=== PATIENT | female | born 1960 | race Caucasian/White ===

== ENCOUNTER 2023-12-07 01:48 | Outpatient (CLI) | payer MEDICAID, SELFPAY ==
--- NOTE | 2023-12-07 06:45 | DI.MAMMO_ITS ---
Exam(s) MAMMO SCREENING EXAM: MAMMO SCREENING CLINICAL HISTORY: screening, Z12.39 TECHNIQUE: Bilateral full field digital CC and MLO mammographic images were obtained with 3D tomosyn thesis and utilizing computer aided detection (CAD). COMPARISON: Available for comparison. FINDINGS: Masses/Architectural Distortion: None seen. Microcalcifications: No suspicious pleomorphic-type are seen. Skin Thickening/Nipple Retraction: None. IMPRESSION: 1. No significant interval change with no specific features of malignancy noted. 2. Unless there is more urgent need, screening mammography is recommended, as per [employer] guidelines. BI-RADS Category 1 - Negative Breast Density - Category B - Scattered areas of fibroglandular density Breast density category C or D implies that the patient has dense breast tissue. Dense breast tissue is very common and is not abnormal but dense breast tissue can make it harder to find cancer on a ma mmogram. Also, dense breast tissue may increase their breast cancer risk. This information about the result of the mammogram report was provided to the patient to raise their awareness. Use this report when you speak with the patient about their risks for breast cancer, which includes their family hist ory. At that time, you may recommend for more screening tests (Ultrasound or MRI) as they might be us eful based on their risk. A negative radiographic report should not delay biopsy if a dominant or clinically suspicious mass is present. Up to ten percent of cancers are not identified on mammography. A negative report may reinforce clinical impression. Adenosis and dense breasts may obscure an underlying neoplasm. False positive reports average 6 to 10%. Patient will receive a letter notifying them of these results.
== END 2023-12-07 02:08 ==
LOC: DI 01:48
PROVIDERS: PCP Family Medicine; Visit Provider Family Medicine
DX: Z12.31 Encounter for screening mammogram for malignant neoplasm of breast (principal)
CPT/HCPCS: 77063; 77067

== ENCOUNTER 2023-12-22 01:24 | Outpatient (CLI) | payer MEDICAID, SELFPAY ==
[2023-12-22 08:43] LABS: HCT 42.4 % (36.0-46.0); MCH 29.9 pg (27.0-33.0); MCV 91 fL (80-95); MPV 9.8 fL (8.0-11.0); Platelet Count 159 10^3/uL (130-400); RBC 4.68 10^6/uL (3.93-5.22); RDW 13.6 % (11.7-14.6); RDW-SD 45.5 fL; WBC 5.41 10^3/uL (4.4-10.8)
[2023-12-22 09:29] LABS: ALT 44 U/L (14-59); AST 23 U/L (15-37); Albumin 3.6 g/dL (3.4-5.0); Alkaline Phosphatase 72 U/L (46-116); Anion Gap 10.5 mmol/L (3-11); BUN 25 mg/dL (7-18); CO2 27.5 mmol/L (21.0-32.0); Calcium 9.2 mg/dL (8.5-10.1); Calculated LDL 120 mg/dL (<100); Chloride 105 mmol/L (98-107); Cholesterol 212 mg/dL (<200); Glucose 113 mg/dL (74-106); HDL Cholesterol 55 mg/dL (40-60); Potassium 4.2 mmol/L (3.5-5.1); Sodium 143 mmol/L (136-145); Total Protein 7.5 g/dL (6.4-8.2); Triglyceride 185 mg/dL (<150); Vitamin B12 827 pg/mL (193-986); Vitamin D 25 Total 36.6 ng/mL (30-100)
== END 2023-12-22 01:25 | disposition home or self-care (01) ==
LOC: LBO 01:24
PROVIDERS: Absent Provider Family Medicine; PCP Nurse Practitioner; Referring Provider Family Medicine; Visit Provider Family Medicine
DX: E55.9 Vitamin D deficiency, unspecified (principal); E53.8 Deficiency of other specified B group vitamins
CPT/HCPCS: 36415; 80053; 80061; 82306; 85027; 82607

== ENCOUNTER 2023-12-28 12:01 | Outpatient (CLI) | payer MEDICAID, SELFPAY ==
--- NOTE | 2023-12-28 10:00 | DI.RAD_ITS ---
Exam(s) XR KNEE RT 4V AP,LAT,SAMANTHA,PAT EXAM: XR KNEE RT 4V AP,LAT,SAMANTHA,PAT CLINICAL HISTORY: OA R KNEE. TECHNIQUE: 2D digital imaging was performed. Three views. COMPARISON: No exams were available for comparison FINDINGS: BONES: No acute fracture is present. No bony destructive lesion is seen. Enthesophyte at upper pole of patella. Prominent enthesophyte at tibial tubercle. JOINTS: Moderate narrowing of the medial femoral tibial joint space with slight periarticular spurrin g. Patellofemoral joint space is maintained. Patellar alignment appears normal. No joint effusion is seen. SOFT TISSUE: Normal. IMPRESSION: Moderate degenerative changes of the medial femoral tibial joint. DATA REPOSITORY: RADIATION DOSE DELIVERED:
--- NOTE | 2023-12-28 10:03 | DI.RAD_ITS ---
Exam(s) XR KNEE LT 4V AP,LAT,SAMANTHA,PAT EXAM: XR KNEE LT 4V AP,LAT,SAMANTHA,PAT CLINICAL HISTORY: LEFT KNEE PAIN. TECHNIQUE: 2D digital imaging was performed. Three views. COMPARISON: CR XR KNEE RT 4V AP,LAT,SAMANTHA,PAT from 12/28/2023 FINDINGS: BONES: No acute fracture is present. No bony destructive lesion is seen. Patellar enthesophytes. Pr ominent enthesophyte at the tibial tubercle. JOINTS: The knee is normally aligned. No joint effusion is seen. Mild narrowing of the medial femoral tibial joint space. Mild spurring at the tibial spines. SOFT TISSUE: Normal. IMPRESSION: Mild medial femoral tibial joint space narrowing. Prominent enthesophyte at the tibial tubercle. DATA REPOSITORY: RADIATION DOSE DELIVERED:
== END 2023-12-28 12:02 | disposition home or self-care (01) ==
LOC: DIORS 12:01
PROVIDERS: PCP Nurse Practitioner; Visit Provider Student in an Organized Health Care Education/Training Program
DX: M17.11 Unilateral primary osteoarthritis, right knee (principal); M25.562 Pain in left knee
CPT/HCPCS: 73564

== ENCOUNTER 2024-02-06 06:48 | Day surgery (SDC) | payer MEDICAID, SELFPAY ==
--- NOTE | 2024-02-05 12:41 | COLE_ITS ---
Date of service: 02/06/24 Time of Service: 09:19 Colonoscopy Report Date of procedure: 02/06/24 Pre-op diagnosis general: pelvic floor dysfunction/ colon polyp Post-op diagnosis procedure note: other (Diverticula/rectocele/rectal sphincter incompetence/vaginal atrophy) Surgeon: Lucila Castillo Anesthesia Type: General:No Airway Estimated blood loss (mL): 0 Pathology: none sent Complications: None Disposition: same day Prep: Miralax/Dulcolax Retraction Time: 13 Procedure Description: After informed consent was obtained, explaining risks of the procedure, including but not limits to: bleeding, infections, complications of anesthesia, perforations (which may require antibiotics and /or surgery and stay in the hospital), and abdominal pain/cramping. The patient was taken to the procedure room and placed in a left decubitous position. Monitors were applied and a time out was done. The patients name, date of , procedure, allergies to medications and metal in their body was reviewed. Pelvic exam was done which did show a small rectocele and significant vaginal atrophy. Rectal exam shows poor tone the patient was then sedated. Once sedated and comfortable a rectal exam was done. External exam was normal. Internal exam revealed poor sphincter tone and no palpable masses. The previously lubricated Olympus scope was then introduced (see RN notes for scope number) and retrofelexed. No internal hemorrhoids were identified. The scope was then advanced to the cecum without difficulty. The TI and appendiceal orifice were identified. The scope was then slowly retracted over 13 minutes back into the rectum. Polyps: None. Diverticula:pt had a moderate amount of small mouthed diverticula in the sigmoid colon. There were no signs of active bleeding or infection. The mucosa is pink and healthy w/ a normal vascular pattern. The scope was removed, and the patient was woken up and taken back to Same day surgery in stable condition. The patient tolerated the procedure well and there were no immediate complications. Follow up: The patient should follow up in 10 years, unless they develop changes in bowel habits or other new gastrointestinal complaints. Alliance Bowel Prep Alliance Bowel Prep Right Colon: 2 Left Colon: 2 Transverse Colon: 2 Total Score: 6
--- NOTE | 2024-02-05 12:42 | PDOC.DSDIS_ITS ---
Date of service: 02/06/24 Time of Service: 09:22 Discharge Plan Disposition Patient Disposition: Home Condition: Good Discharge Details Reason For Visit: colon scope Attending Provider: Lucila Castillo Primary Care Provider: Mariya Pelaez Home Meds and New Rx's Prescriptions: Continued sertraline 100 mg tablet 200 mg PO DAILY Qty: 90 3RF diphenoxylate-atropine 2.5-0.025 mg tablet 1 tab PO TID PRN (Reason: diarrhea) Qty: 180 3RF meloxicam 15 mg tablet 15 mg PO DAILY Qty: 90 3RF ipratropium-albuterol 0.5 mg-3 mg(2.5 mg base)/3 mL solution for nebulization 3 ml inhalation QID PRN (Reason: wheezing) Qty: 180 3RF mecobalamin (vitamin B12) 1,000 mcg tablet,chewable 1,000 mcg PO DAILY Qty: 90 3RF celecoxib 200 mg capsule 200 mg PO BID PRN (Reason: pain) Qty: 60 6RF budesonide-formoterol 160-4.5 mcg/actuation HFA aerosol inhaler 2 puff inhalation BID Qty: 10.2 6RF (DME) Hand held nebulizer See Rx Instructions .Route .MEDSUPPLY Qty: 1 0RF Rx Instructions: As directed cholecalciferol (vitamin D3) 25 mcg (1,000 unit) capsule 25 mcg PO DAILY hydroxyzine HCl 25 mg tablet 25 mg PO QHS oxygen inhalation Rx Instructions: 2L for exertion and at bedtime Discontinued polyethylene glycol 3350 17 gram/dose powder 238 g PO ONCE Qty: 238 0RF Rx Instructions: take per colonoscopy instructions bisacodyl [Dulcolax (bisacodyl)] 5 mg tablet,delayed release (DR/EC) 5 mg PO ONCE Qty: 4 0RF Rx Instructions: take per colonoscopy instructions No Action bupropion HCl [Wellbutrin XL] 150 mg tablet extended release 24 hr 150 mg PO QAM Qty: 90 1RF Discharge Instructions Additional Instructions: DSU Colonoscopy Post- Op Instructions Instructions for Everyone who is given Anesthesia: For your safety, please do the following for the next twenty-four (24) hours: *Do Not operate a motor vehicle (car, truck, motorcycle, etc.) *Do Not drink alcoholic beverages or use any recreational drugs for the first 24 hours or while taking pain medications. The medications in your body may have a reaction that can be dangerous. *Do Not make any important decisions or sign any important papers. Findings: Pelvic floor dysfunction and rectal sphincter incontinence Diverticula Follow up: -Recommend follow-up with PCP or women's wellness to discuss hormonal therapy -4-5 servings of fruits and vegetables a day and 8 to 12 glasses of water a day. If you are still having problems with constipation it is recommended you start a fiber product daily such as Metamucil. Make sure you are avoiding straining to move your bowels. -Follow-up with pelvic floor PT 1. No lifting over 20 pounds or strenuous activity for the first 24 hours after your procedure. After 24 hours there are no restrictions on your activity but you may feel fatigued for a few days. 2. After you arrive home you may have a light meal and return to your normal diet as you can tolerate it without feeling sick to your stomach. 3. You may have a bloated, gaseous feeling in your belly (abdomen) after a colonoscopy. Passing gas and belching will help. Walking or lying down on your left side with your knees flexed may relieve the discomfort. Call the office at [phone] (Office) or [phone] (Hospital) right away if you notice any of the following: a.Vomiting of blood or ?coffee ground stools?. b.Rectal bleeding 1Tbsp, blood clots or continuous bleeding. c.Severe belly (abdominal) pain. d.A hard distended belly (abdomen) and an inability to pass gas. 4. Please don?t expect to have a normal BM (bowel movement) for 2-3 days after your procedure. 5. If there are questions regarding the findings of your procedure, please contact your doctor 6. If you are unable to contact your doctor with a problem, contact the hospital at [phone]. 7. Continue all your regular medications unless directed otherwise. I understand the above instructions and have no questions. Signature of Patient or Adult Escort Name of Responsible Adult Escort Signature of Nurse Date/Time Stand Alone Forms: Anesthesia Discharge Inst., Ольга Giraldo (DSU) Activity:: see above Diet:: see above Discharge Orders Discharge Orders: Discharge Order (Routine); Ordered 02/06/24 Ordered By: Lucila Castillo DS: Diagnosis Discharge Diagnosis (1) IBS (irritable bowel syndrome): Status: Chronic (2) Rectal sphincter incontinence: Status: Acute (3) History of colon polyps: Status: Acute Asessment and Plan: The patient is seen and examined after their colonoscopy.? The patient has been able to pass gas.? They are not having abdominal pain.? They have been able to tolerate liquids and a snack.? They do not have any nausea or vomiting.? They are not having any chest pain or shortness of breath.??? They are not having any rectal bleeding. Their vital signs have been stable-see nursing notes. We discussed findings during their colonoscopy, and any biopsies that were done /polyps that were removed. The patient will be sent a letter with any biopsy results, and when to repeat the colonoscopy.-see discharge instructions. Patient was given explicit instructions to follow-up regarding colonoscopy-refer to discharge instructions.? We reviewed resumption of medications. Patient verbalized understanding and discharged in stable and satisfactory condition- See nursing notes. (4) COPD (chronic obstructive pulmonary disease): Status: Chronic (5) Nicotine dependence: Status: Acute (6) Diverticula of colon: Status: Acute (7) Pelvic floor dysfunction in female: Status: Acute (8) Pelvic muscle atrophy: Status: Acute (9) Vaginal atrophy: Status: Acute
[2024-02-06 07:10] VITALS: BP 138/75; PULSE 113; RESP 16; TEMP 36.6; O2SAT 96
[2024-02-06] MEDS: Lactated Ringers 500 ML 80 ML IV (07:52)
--- NOTE | 2024-02-06 08:31 | W.ANESPRE ---
General Info Date of Service Date Performed: 02/06/24 Height: 5 ft 5 in Weight: 95.4 kg Body Mass Index (BMI): 34.9 Surgical Procedure: Operation Date: 02/06/24 08:20 Proposed Procedure Side Surgeon ran Castillo, DO Meds Allergies and Home Medications Allergies Allergy/AdvReac Type Severity Reaction Status Date / Time codeine AdvReac Intermediate Vomiting Verified 02/06/24 07:28 morphine AdvReac Intermediate Vomiting Verified 02/06/24 07:28 Home Medication ?Medication ?Instructions ?Recorded cholecalciferol (vitamin D3) 25 25 mcg PO DAILY 11/09/23 mcg (1,000 unit) capsule hydroxyzine HCl 25 mg tablet 25 mg PO QHS 11/09/23 oxygen inhalation 11/09/23 diphenoxylate-atropine 2.5 1 tab PO TID PRN diarrhea #180 tabs 11/16/23 mg-0.025 mg tablet ipratropium 0.5 mg-albuterol 3 mg 3 ml inhalation QID PRN wheezing 11/16/23 (2.5 mg base)/3 mL nebulization #180 mL soln mecobalamin (vitamin B12) 1,000 1,000 mcg PO DAILY #90 tabs 11/16/23 mcg chewable tablet meloxicam 15 mg tablet 15 mg PO DAILY #90 tabs 11/16/23 sertraline 100 mg tablet 200 mg (2 x 100 mg) PO DAILY #90 11/16/23 tabs celecoxib 200 mg capsule 200 mg PO BID PRN pain #60 caps 12/28/23 budesonide-formoterol HFA 160 2 puff inhalation BID #10.2 grams 12/31/23 mcg-4.5 mcg/actuation aerosol inhaler Hand held nebulizer #1 ea 01/03/24 Current Visit Medications: Current Medications Generic Name Dose Route Start Last Admin Trade Name Freq PRN Reason Stop Dose Admin Hyoscyamine Sulfate 0.125 mg 02/06/24 10:20 Hyoscyamine 0.125 Mg Sl/Oral/Chew SL 03/07/24 10:19 DIRECTED PRN Ringer's Solution 1,000 mls @ 80 mls/hr 02/06/24 06:00 IV 02/06/24 23:59 INFUSION GABRIEL Ringer's Solution 500 mls @ 80 mls/hr 02/06/24 06:55 02/06/24 07:52 IV 03/07/24 06:54 80 mls/hr PREOP GABREIL Administration IV Miscellaneous Supplies 1 each 02/06/24 06:00 Iv Access IV 02/06/24 23:59 DIRECTED GABRIEL Ondansetron HCl 4 mg 02/06/24 10:20 Ondansetron 4 Mg/2 Ml Vial IVP 03/07/24 10:19 Q4H PRN PRN Nausea / Vomiting Sodium Chloride 0 ml 02/06/24 06:00 Normal Saline Flush 10 Ml Syr IV 02/06/24 23:59 PRN PRN Sodium Chloride 0 ml 02/06/24 06:00 Normal Saline 10 Ml Vial IJ 02/06/24 23:59 DIRECTED PRN Sterile Water 0 ml 02/06/24 06:00 Water,Injection,Sterile 10 Ml Vial IJ 02/06/24 23:59 DIRECTED PRN PFSH Active Problems Active Problems: Problem Status Onset Code History of colon polyps Acute Z86.0100 Rectal sphincter incontinence Acute R15.9 B12 deficiency Acute E53.8 Arthritis of knee, right Acute M17.11 Nicotine dependence Acute F17.200 IBS (irritable bowel syndrome) Chronic K58.9 Generalized anxiety disorder Acute F41.1 Depressive disorder Chronic F32.A COPD (chronic obstructive pulmonary disease) Chronic J44.9 Arthritis Acute M19.90 Surgical History Surgical History Hx of neck surgery Hx of hand surgery Hx of section x2 Hx of hysterectomy Hx of eye surgery Tobacco Smoking/Tobacco Use Status: Former Tobacco Use (Per Patient quit 1.5 years ago ) Smokeless tobacco user: other Passive smoking exposure: Yes Alcohol Alcohol Intake: never Substance Use Substance use: Never Substance use type: does not use Counseling provided: other (encouraged to reach for help when she is ready) Vital Signs and Lab Results Vital Signs Most Recent Vital Signs in EMR: Most Recent Vital Signs Temp Pulse Resp BP Pulse Ox 36.6 C 113 H 16 138/75 96 02/06/24 07:10 02/06/24 07:10 02/06/24 07:10 02/06/24 07:10 02/06/24 07:10 Lab Results Blood Type / Crossmatch: No Data to Display Complete Blood Count: No Data to Display Complete Metabolic Panel: No Data to Display Liver Function Panel: No Data to Display Coagulation Panel: No Data to Display Cardiac Panel: No Data to Display Arterial Blood Gas: No Data to Display Venous Blood Gas: No Data to Display Pancreas Panel: No Data to Display Thyroid Panel: No Data to Display Infectious Disease: No Data to Display Blood Cultures: No Data to Display Toxicology Panel: No Data to Display Anesthesia Assessment and Plan Anesthesia History Personal History: No History of Anesthesia Complications Family History: No Family History of Anesthesia Complications Exercise Tolerance Exercise Tolerance: Metabolic Equivalents>4 Pertinent Negatives Pertinent Negatives: No Symptoms of GERD (Symptoms with Prep, decreased overnight. None today), No Major Cardiovascular Symptoms or Complaints and No History of CVA/TIA Cardiac & Pulmonary Exam Cardiac Exam: Normal S1/S2 Heart Sounds Pulmonary Exam: Clear Bilateral Breath Sounds Implantable Cardiac Device Does patient have a Pacemaker or an ICD?: No Airway Exam Known Difficult Airway: No Mallampati Class: 3 Mouth Opening: Narrow (< 3cm) Thyromental Distance: Greater than 3 cm Neck Range of Motion: Limited ROM and History of Cervical Fusion Neck Circumference: Normal Teeth Condition: Removable Dentures/Plates Upper and Removable Dentures/Plates Lower ASA Classification ASA Score: ASA 3 Emergency Case?: No NPO Status NPO Status: NPO Clears >2 hours, Solids >8 hours Anesthesia Plan Resuscitation Status: Full Code Anesthesia Technique: General Anesthesia Airway Planned: Natural Airway Monitors Used: Standard Monitors
[2024-02-06 08:32] VITALS: BMI 34.9
[2024-02-06 09:16] VITALS: BP 120/57; PULSE 83; RESP 16; TEMP 36.3; O2SAT 96
--- NOTE | 2024-02-06 09:25 | W.ANESPOSTOP ---
Postoperative Evaluation Date, Time and Location Date Performed: 02/06/24 Time Performed: 09:25 Patient Location: Day Surgery Unit Vital Signs Most Recent Imported Vital Signs: Most Recent Vital Signs Temp Pulse Resp BP Pulse Ox 36.3 C L 83 16 120/57 L 96 02/06/24 09:16 02/06/24 09:16 02/06/24 09:16 02/06/24 09:16 02/06/24 09:16 Pain Score Most Recent Pain Score: Most Recent Pain Score Pain Level 0 02/06/24 09:16 Assessment Mental Status: Awake (Alert & Oriented to Patient Baseline) Airway and Respiratory Function: Patent airway with normal (patient baseline) respiratory exam Cardiovascular Function: Hemodynamically Stable Hydration Status: Adequately Hydrated Nausea & Vomiting: No Nausea or Vomiting Pain: Pt. Denies Any Pain Peripheral Nerve Block: Patient did not receive a nerve block
[2024-02-06 09:44] VITALS: BP 128/71; PULSE 76; RESP 16; TEMP 36.6; O2SAT 96
== END 2024-02-06 10:12 | disposition home or self-care (01) ==
LOC: SUR 06:49
PROVIDERS: PCP Nurse Practitioner; Visit Provider Surgery
PROC: 0DJD8ZZ Inspection of Lower Intestinal Tract, Via Natural or Artificial Opening Endoscopic (ICD-10-PCS; CPT 45378; principal; 2024-02-06 08:15)
PROC: (CPT 45378; 2024-02-06 08:15)
DX: R15.9 Full incontinence of feces; Z86.0100 Personal history of colon polyps, unspecified; K57.30 Diverticulosis of large intestine without perforation or abscess without bleeding; N81.84 Pelvic muscle wasting; J44.9 Chronic obstructive pulmonary disease, unspecified
CPT/HCPCS: 45378; J2704

== ENCOUNTER 2024-07-08 01:51 | Outpatient (CLI) | payer MEDICAID, SELFPAY ==
[2024-07-08 14:21] LABS: HCT 44.3 % (36.0-46.0); HGB 14.7 g/dL (11.2-15.7); MCH 29.5 pg (27.0-33.0); MCHC 33.2 % (32.0-36.0); MCV 89 fL (80-95); MPV 10.2 fL (8.0-11.0); Platelet Count 182 10^3/uL (130-400); RBC 4.99 10^6/uL (3.93-5.22); RDW 13.6 % (11.7-14.6); RDW-SD 44.4 fL; WBC 6.67 10^3/uL (4.4-10.8)
[2024-07-08 14:34] LABS: Anion Gap 8.9 mmol/L (3-11); BUN 17 mg/dL (7-18); CO2 29.1 mmol/L (21.0-32.0); CREATININE 1.1 mg/dL (0.55-1.02); Calcium 9.7 mg/dL (8.5-10.1); Chloride 106 mmol/L (98-107); Estimated GFR 56.11 (mL/min/1.73m2); Glucose 127 mg/dL (74-106); Potassium 4.2 mmol/L (3.5-5.1); Sodium 144 mmol/L (136-145)
== END 2024-07-08 01:52 | disposition home or self-care (01) ==
LOC: LBO 01:51
PROVIDERS: PCP Nurse Practitioner; Visit Provider Student in an Organized Health Care Education/Training Program
DX: M17.11 Unilateral primary osteoarthritis, right knee (principal); Z01.818 Encounter for other preprocedural examination
CPT/HCPCS: 36415; 80048; 85027

== ENCOUNTER 2024-07-08 12:25 | Outpatient (CLI) | payer MEDICAID, SELFPAY ==
--- NOTE | 2024-07-08 11:30 | DI.RAD_ITS ---
Exam(s) XR KNEE RT 1V XR STANDING ALIGNMENT EXAM: XR STANDING ALIGNMENT and XR knee RT 1 V CLINICAL HISTORY: PRE OP R TKA. TECHNIQUE: 2D digital imaging was performed. Five images were obtained. COMPARISON: CR XR KNEE RT 4V AP,LAT,SAMANTHA,PAT from 12/28/2023 CR XR KNEE LT 4V AP,LAT,SAMANTHA,PAT from 12/28/2023 FINDINGS: BONES: The hips are well maintained. In the right knee, mild degenerative changes are present charac terized by narrowing of the medial femoral tibial joint and osteophytes seen in all 3 joint compartme nts. There is a small joint effusion. Enthesophytes are seen at the anterior patella and the anteri or tibial tuberosity. The left knee is well maintained. The ankles are well maintained.There is no significant leg length discrepancy. SOFT TISSUE: Normal. IMPRESSION: Mild osteoarthritis of the right knee. DATA REPOSITORY: RADIATION DOSE DELIVERED:
== END 2024-07-08 12:26 | disposition home or self-care (01) ==
LOC: DIORS 12:25
PROVIDERS: PCP Nurse Practitioner; Visit Provider Physician Assistant
DX: M17.11 Unilateral primary osteoarthritis, right knee (principal)
CPT/HCPCS: 73560; 77073

== ENCOUNTER 2024-07-23 11:24 | Observation (INO) | payer MEDICAID, SELFPAY ==
[2024-07-23] VITALS (58 sets, daily range): BP systolic 105–167; BP diastolic 44–149; PULSE 80–109; RESP 13–24; TEMP 36–36.7; O2SAT 88–97; BMI 35.7
--- NOTE | 2024-07-23 07:01 | ANES.PREOP_ITS ---
General Info Date of Service Date Performed: 07/23/24 Height: 5 ft 5 in Weight: 97.522 kg Body Mass Index (BMI): 35.7 Surgical Procedure: Operation Date: 07/23/24 12:55 Proposed Procedure Side Surgeon p Knee Total Arthroplasty, Cementless CR Right Shawn Joseph MD Meds Allergies and Home Medications Allergies Allergy/AdvReac Type Severity Reaction Status Date / Time codeine AdvReac Intermediate Vomiting Verified 07/23/24 10:15 morphine AdvReac Intermediate Vomiting Verified 07/23/24 10:15 Home Medication ?Medication ?Instructions ?Recorded cholecalciferol (vitamin D3) 25 25 mcg PO DAILY 11/09/23 mcg (1,000 unit) capsule ipratropium 0.5 mg-albuterol 3 mg 3 ml inhalation QID PRN wheezing 11/16/23 (2.5 mg base)/3 mL nebulization #180 mL soln mecobalamin (vitamin B12) 1,000 1,000 mcg PO DAILY #90 tabs 11/16/23 mcg chewable tablet budesonide-formoterol HFA 160 2 puff inhalation BID #10.2 grams 12/31/23 mcg-4.5 mcg/actuation aerosol inhaler Hand held nebulizer #1 ea 01/03/24 estradiol 0.01% (0.1 mg/gram) 1 appful vaginal .3xW #42.5 grams 02/21/24 vaginal cream sertraline 100 mg tablet 200 mg (2 x 100 mg) PO DAILY #180 05/22/24 tabs diphenoxylate-atropine 2.5 1 tab PO TID PRN diarrhea #180 tabs 06/25/24 mg-0.025 mg tablet hydroxyzine HCl 25 mg tablet 25 mg PO QHS #90 tabs 06/25/24 Current Visit Medications: Current Medications Generic Name Dose Route Start Last Admin Trade Name Freq PRN Reason Stop Dose Admin Acetaminophen 1,000 mg 07/23/24 06:00 Acetaminophen 500 Mg Tab PO 07/23/24 23:59 PREOP GABRIEL Celecoxib 400 mg 07/23/24 06:00 Celecoxib 200 Mg Cap PO 07/23/24 23:59 PREOP GABRIEL Gabapentin 300 mg 07/23/24 06:00 Gabapentin 300 Mg Cap PO 07/23/24 23:59 PREOP GABRIEL Ringer's Solution 1,000 mls @ 80 mls/hr 07/23/24 06:00 IV 07/23/24 23:59 INFUSION GABRIEL Cefazolin Sodium/Dextrose 2 gm in 50 mls @ 100 mls/hr 07/23/24 06:00 Ancef Duplex IVPB 07/23/24 23:59 PREOP GABRIEL Tranexamic Acid/Sodium Chloride 1,000 mg in 100 mls @ 600 mls/hr 07/23/24 06:00 IVPB 07/23/24 23:59 DIRECTED GABRIEL IV Miscellaneous Supplies 1 each 07/23/24 06:00 Iv Access IV 07/23/24 23:59 DIRECTED GABRIEL Sodium Chloride 0 ml 07/23/24 06:00 Normal Saline Flush 10 Ml Syr IV 07/23/24 23:59 PRN PRN Sodium Chloride 0 ml 07/23/24 06:00 Normal Saline 10 Ml Vial IJ 07/23/24 23:59 DIRECTED PRN Sterile Water 0 ml 07/23/24 06:00 Water,Injection,Sterile 10 Ml Vial IJ 07/23/24 23:59 DIRECTED PRN PFSH Active Problems Active Problems: Problem Status Onset Code Hyperlipidemia Acute E78.5 Sleep apnea Acute G47.30 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 Vaginal atrophy Acute N95.2 Pelvic muscle atrophy Acute N81.84 Pelvic floor dysfunction in female Acute M62.89 Diverticula of colon Acute K57.30 History of colon polyps Acute Z86.0100 Rectal sphincter incontinence Acute R15.9 B12 deficiency Acute E53.8 Arthritis of knee, right Chronic M17.11 Nicotine dependence Acute F17.200 IBS (irritable bowel syndrome) Chronic K58.9 Generalized anxiety disorder Acute F41.1 Depressive disorder Chronic F32.A COPD (chronic obstructive pulmonary disease) Chronic J44.9 Arthritis Acute M19.90 Surgical History Surgical History Fracture of left distal radius ORIF Inguinal hernia Bilateral plantar fasciitis Status post cervical spinal fusion Hx of hand surgery trigger finger Hx of section x2 Hx of hysterectomy Hx of eye surgery Tobacco Smoking/Tobacco Use Status: Former Tobacco Use Smokeless tobacco user: other Passive smoking exposure: Yes Alcohol Alcohol Intake: never Substance Use Substance use: Never Substance use type: does not use Counseling provided: other (encouraged to reach for help when she is ready) Vital Signs and Lab Results Vital Signs Most Recent Vital Signs in EMR: Temp Pulse Resp BP Pulse Ox 36 C L 80 18 161/70 H 96 07/23/24 09:57 07/23/24 09:57 07/23/24 09:57 07/23/24 09:57 07/23/24 09:57 Lab Results Blood Type / Crossmatch: No Data to Display Complete Blood Count: White Blood Count 6.67 10^3/uL (4.4-10.8) 07/08/24 14:10 Red Blood Count 4.99 10^6/uL (3.93-5.22) 07/08/24 14:10 Hemoglobin 14.7 g/dL (11.2-15.7) 07/08/24 14:10 Hematocrit 44.3 % (36.0-46.0) 07/08/24 14:10 Platelet Count 182 10^3/uL (130-400) 07/08/24 14:10 Complete Metabolic Panel: Sodium 144 mmol/L (136-145) 07/08/24 14:10 Potassium 4.2 mmol/L (3.5-5.1) 07/08/24 14:10 Chloride 106 mmol/L (98-107) 07/08/24 14:10 Carbon Dioxide 29.1 mmol/L (21.0-32.0) 07/08/24 14:10 BUN 17 mg/dL (7-18) 07/08/24 14:10 Creatinine 1.1 mg/dL (0.55-1.02) H 07/08/24 14:10 Est GFR (CKD-EPI 2020) 56.11 (mL/min/1.73m2) 07/08/24 14:10 Calcium 9.7 mg/dL (8.5-10.1) 07/08/24 14:10 Glucose 127 mg/dL (74-106) H 07/08/24 14:10 Liver Function Panel: No Data to Display Coagulation Panel: No Data to Display Cardiac Panel: No Data to Display Arterial Blood Gas: 2 No Data to Display Venous Blood Gas: No Data to Display Pancreas Panel: No Data to Display Thyroid Panel: No Data to Display Infectious Disease: No Data to Display Blood Cultures: No Data to Display Toxicology Panel: No Data to Display Anesthesia Assessment and Plan Anesthesia History Personal History: Other Family History: No Family History of Anesthesia Complications Exercise Tolerance Exercise Tolerance: Metabolic Equivalents>4 Cardiac & Pulmonary Exam Cardiac Exam: Normal S1/S2 Heart Sounds Pulmonary Exam: Clear Bilateral Breath Sounds Implantable Cardiac Device Does patient have a Pacemaker or an ICD?: No Airway Exam Known Difficult Airway: No Mallampati Class: 3 Mouth Opening: Narrow (< 3cm) Thyromental Distance: Greater than 3 cm Neck Range of Motion: Limited ROM and History of Cervical Fusion Neck Circumference: Normal Teeth Condition: Removable Dentures/Plates Upper and Removable Dentures/Plates Lower ASA Classification ASA Score: ASA 2 Emergency Case?: No NPO Status NPO Status: NPO Clears >2 hours, Solids >8 hours Anesthesia Plan Resuscitation Status: Full Code Anesthesia Technique: Spinal Anesthesia Airway Planned: Natural Airway Pain Management: Surgeon and patient request nerve block Monitors Used: Standard Monitors Preoperative Comments:: 64 yo female for TKA. Sig PMHx: COPD (budesonide/formoterol, duo), anxiety/depression (sertraline), c spine fusion C5,6,7. Previous Anes: States she has had mucus plugs in the past, but was smoking a lot more then. - colo, prop, natural airway, no issues.
[2024-07-23] MEDS: Gabapentin 300 MG CAP PO (10:32)
[2024-07-23] MEDS: Acetaminophen 500 MG TAB 1000 MG PO ×2 (10:32→21:34)
[2024-07-23] MEDS: Celecoxib 200 MG CAP 400 MG PO (10:32)
[2024-07-23] MEDS: Lactated Ringers 1,000 ML 80 ML IV (10:45)
--- NOTE | 2024-07-23 11:11 | W.ANESNERVE ---
Nerve Block Single Injection Procedure Date and Time Date Performed: 07/23/24 Procedure Start: 11:05 Location Where Procedure Performed Procedure Location: Day Surgery Unit Reason Performed: Postoperative Analgesia Requesting Provider: Shawn Joseph Timeout Performed Timeout Performed: Yes Monitoring Used ECG, Blood Pressure and SpO2 Sterility Sterility: Hand Hygiene, Surgical Cap, Surgical Mask, Sterile Gloves and Chlorhexidine Sedation Given During Procedure Sedation Given (Indicate Dose Given): Versed IV Dose:: 2 mg Patient Mental Status Patient Mental Status: Sedate with meaningful communication Nerve Block 1st Nerve Block: Laterality: Right Block Type: Adductor Canal Ultrasound Image Saved?: Yes Needle / Catheter Used: 100mm SonoPlex II Local Anesthetic Bolus (Indicate Dose Given): Lidocaine used for local infiltration of skin and Bupivacaine 0.25% Dose:: 10 mL Additives (Indicate Dose Given): None Ultrasound: Sterile probe cover and gel used Nerve Stimulator: Supplement to Ultrasound use and No twitch or parasthesia noted < 0.5 mA Paresthesia: None Procedure Tolerated: No Complications Procedure Outcome: Successful Performed By: Rasta Lozano
--- NOTE | 2024-07-23 11:28 | W.PM.DSUDISC ---
Discharge Plan Disposition Patient Disposition: Home Condition: Good Discharge Details Reason For Visit: Right knee DJD Attending Provider: Shawn Joseph Primary Care Provider: Mariya Pelaez Meds and New Rx's Prescriptions: New celecoxib [Celebrex] 200 mg capsule 200 mg PO BID PRNQty: 60 0RF Rx Instructions: Take one tablet twice daily for pain and inflammation aspirin 81 mg tablet,delayed release (DR/EC) 81 mg PO BID 30 Days Qty: 60 0RF acetaminophen 500 mg tablet 1,000 mg PO Q8H PRN Qty: 90 0RF Rx Instructions: Take two tablets up to every 8 hours as needed for pain pantoprazole 40 mg tablet,delayed release (DR/EC) 40 mg PO DAILY Qty: 14 0RF dexamethasone 4 mg tablet 4 mg PO DAILY Qty: 2 0RF Rx Instructions: Take one tablet once daily for two days docusate sodium [Colace] 100 mg capsule 100 mg PO BID Qty: 28 0RF gabapentin 300 mg capsule 300 mg PO QHS Qty: 14 0RF Rx Instructions: Take one tablet at bedtime oxycodone 5 mg tablet 5 mg PO Q4H PRNQty: 18 0RF Rx Instructions: Take one tablet up to every 4 hours as needed for severe postoperative pain Continued ipratropium-albuterol 0.5 mg-3 mg(2.5 mg base)/3 mL solution for nebulization 3 ml inhalation QID PRN (Reason: wheezing) Qty: 180 3RF mecobalamin (vitamin B12) 1,000 mcg tablet,chewable 1,000 mcg PO DAILY Qty: 90 3RF budesonide-formoterol 160-4.5 mcg/actuation HFA aerosol inhaler 2 puff inhalation BID Qty: 10.2 6RF estradiol 0.01 % (0.1 mg/gram) cream 1 appful vaginal .3xW Qty: 42.5 12RF Rx Instructions: for 14 days (DME) Hand held nebulizer See Rx Instructions .Route .MEDSUPPLY Qty: 1 0RF Rx Instructions: As directed cholecalciferol (vitamin D3) 25 mcg (1,000 unit) capsule 25 mcg PO DAILY sertraline 100 mg tablet 200 mg PO DAILY Qty: 180 3RF hydroxyzine HCl 25 mg tablet 25 mg PO QHS Qty: 90 3RF diphenoxylate-atropine 2.5-0.025 mg tablet 1 tab PO TID PRN (Reason: diarrhea) Qty: 180 3RF Discharge Instructions Additional Instructions: Total Knee Discharge Instructions Activity: The most important activity is to walk and to work on gentle motion (both flexion and extension). You should try to take short walks a few times a day. It is important that when resting you work on keeping the knee straight. Avoid putting a pillow behind the knee as this will encourage flexion. Work on range of motion exercises as provided by Physical Therapy. - Start outpatient physical therapy within 2 weeks. - You should wear the EFRA hose on both legs for 2 weeks. You may remove these at night. You may also use any compression sock in place of the EFRA hose. - Utilize [employer] to review exercises, see videos on exercises and obtain basic information pertaining to your surgery and your recovery. Dressing: Remove the Raymon wrap by 2 days after your surgery and put on the EFRA stocking given to you from the hospital. Keep the surgical dressing (underneath the RAYMON wrap) in place for at least one week. After the first week it may be removed and replaced with light gauze and tape or nothing. The wound and dressing may get wet after 3 days but avoid soaking the dressing or otherwise it will need to be changed. Many people prefer covering the dressing with cling wrap (saran wrap) to minimize it from getting soaked. If it gets wet, just pat dry. If it starts to peel off then it will need to be changed. Medications: - You should take Tylenol and anti-inflammatory Celebrex as your primary pain control medications. If the Celebrex is too expensive or not covered, please call the office for another alternative (Advil/Ibuprofen or Naproxen/Aleve) - You have been prescribed a stronger pain medication Oxycodone for breakthrough pain, take as needed as prescribed. - You have also been prescribed a stomach acid reduction agent Pantoprozole to help reduce stomach acid and reflux. - You have been prescribed Gabapentin to take at night for restlessness and nerve pain. - You will be taking Aspirin 81mg twice a day for DVT prevention unless instructed otherwise. - You have also been prescribed Decadron to take to control post-operative nausea and pain. You will start this tomorrow. - If you have constipation you should take Colace (which has been prescribed) or Miralax (which is available [id number]). It takes most people 3-4 days to have a bowel movement. Follow-up: 2 weeks If you have any acute concerns or questions, please do not hesitate to contact the office at [phone]. You may contact Dr. Joseph with any questions after hours through the hospital at [phone] or on his cell phone at [phone]. Referrals: Shawn Joseph MD [ [facility] STAFF PHYSICIAN] - Equipment/Supplies: Walker Activity:: Elevate Remove Dressings/Wound Care:: Do Not Remove Shower/Bathe:: Cover Diet:: As Tolerated Discharge Orders Discharge Orders: Discharge Order (Routine); Ordered 07/23/24 Ordered By: Lucila Morales
[2024-07-23] MEDS: ceFAZolin 2 GM/50 ML BAG IVPB (11:50)
[2024-07-23] MEDS: TRANEXAMIC ACID/SOD. CHL. 1,000 MG/100 ML BAG 600 MG IVPB (12:00)
--- NOTE | 2024-07-23 13:24 | ROE_ITS ---
Operative Note Operative Note PRE-OP DIAGNOSIS: Right Knee Osteoarthritis POST-OP DIAGNOSIS: same PROCEDURE: Right Total Knee Replacement SURGEON: Shawn Joseph SENIOR PENSIONS ADMINISTRATOR: Lucila Morales ANESTHESIA TYPE: Spinal Refer to Anesthesia Record ESTIMATED BLOOD LOSS: 50 PATHOLOGY: none sent TOURNIQUET TIME: 0 COMPLICATIONS: Other (Persistent and erratic hypotension, nausea and vomiting) Patient was transported to: PACU Patient's condition: stable Implants: 1. Depuy Attune Cementless Cruciate Retaining Femoral Component, Size 5 2. Depuy Attune Cementless Fixed Bearing Tibial Component, Size 5 3. Depuy Attune 5x7mm CR/FB Poly Indications: I have seen Rashard in clinic for symptoms of knee arthritis, confirmed with radiogr aphic findings. She has exhausted nonoperative methods and was having significant limitations in daily function and desired better function and less pain. I discussed the technical details of a knee replacement. I explained the risks of the procedure to include, but not limited to, bleeding, infection, pain, stiffness, fracture, damage to nerves and vessels, damage to muscles and tendons, loosening, need for repeat procedure, blood clot and cardiopulmonary demise. Despite these risks, Rashard elected to proceed. Findings: There was significant chondromalacia of the medial femur primarily with some changes about the trochlea. Procedure Description: Rashard was greeted in the preoperative holding area where the correct side was identified and marked. The consent was reviewed with the patient and signed. The history and physical was updated. All questions were answered. Preoperative medications were administered: Acetaminophen 1000mg, Celebrex 400mg, and Gabapentin 300mg. An adductor canal block was then administered by the anesthesia team in the DSU. She was taken back to the operating room. A spinal anesthestic was then administered. The patient was placed into the supine position on the operating room table. Posts were placed for positioning during the procedure. All bony prominences were well padded. Prophylactic antibiotics in the form of Cefazolin were administered. 1g of Tranxemic Acid was given intravenously within 30 minutes of incision. The right leg was then prepped with Chloraprep and draped in a standard fashion with impervious stockinette. A second prep with Chloraprep was performed prior to application of Iodine impregnated skin protection. A timeout to confirm correct identity, side and site, procedure, allergies, anesthesia, and medical concerns was performed. With the knee in some flexion, a midline incision was made overlying the knee. Full thickness skin flaps were raised once the extensor mechanism was encountered. These were raised medially and laterally. Any bleeding was controlled with electrocautery. Once the extensor mechanism was fully exposed, a medial parapatellar arthrotomy was performed in a flexed position. All bleeding from the arthrotomy and the geniculate arteries was coagulated. A medial subperiosteal peel was performed with electrocautery to the midcoronal plane. The fat pad was removed while keeping the patellar tendon protected. The anterior distal femur synovium was removed for later visualization. The ACL and PCL were resected and the anterior horn of the lateral meniscus was transected. The knee was then flexed with the patella everted. Using a step drill, and based on preoperative templating, the femoral canal was entered. This was done with a step drill without any difficulty. The intramedullary distal femoral cut guide was inserted, set to a 6 degree valgus cut and 9mm cut thickness. The distal femoral cut guide was then held in position and pinned. With the soft tissues protected, the distal cut was performed. This was passed over a few times to ensure a planar cut. I then turned attention to the tibia. The extramedullary guide was placed onto the leg. The distal aspect was slid medial to adjust for position of center of ankle and stay in line with shaft of the tibia. Approximately 3-5 degrees of posterior slope was kept in the proximal cutting guide. The center of the guide was aligned with the PCL. The stylus was used to assess cut thickness. The medial side, most involved side, was set for a 6mm cut. This was then held in position and pinned into place with 2 additional pins and a cross pin for stability. The medial and lateral collateral ligaments were protected and the cut was performed. With this completed, it was assessed and noted to be of appropriate dimensions. The guide was removed. A spacer block was inserted and the knee was brought into extension. The 6mm spacer block provided full extension, without hyperextension and with stability of both the medial and lateral collateral ligaments was assessed. The pins from the femur and the tibia were then removed. At some point around this time of the case she was lightened with her sedation due to some intermittent but persistent hypotension. She then reported some nausea and had an episode of emesis controlled by anesthesia with suction and was able to talk afterwards without any change in her respiratory status. However, her nausea persisted as we did intermittent hypotension requiring pressure support throughout the remainder of the case. She was maintained in a stable position with her head of bed elevated and pressure support in order to finish the case and she was kept with minimal sedation, comfortable with the spinal. She was able to move her arms and her hands at this time. Attention was then turned to the distal femur. The distal femur was then sized. The anterior stylus was placed onto the lateral ridge of the anterior femur. This indicated a size 5 femur. The external rotation of the guide was adjusted to 3 degrees to match the epicondylar axis, perpendicular to Meredith?s line. The 4-in-1 cutting guide was the placed. The posterior medial femur cut was evaluated and appeared of good thickness. The spacer block was inserted underne ath the cutting guide and stability was confirmed in 90 degrees of flexion. An alisson wing was used to confirm appropriate position of the anterior cut to avoid notching. This cutting guide was ensured to be flush on the cut surface and then pinned into place with headed pins. While protecting the soft tissues, quad tendon, and collateral ligaments, the anterior and posterior cuts were performed with a saw. The central two pins were removed and the posterior and anterior chamfers were cut next. The notch-cutting guide was placed. This was pinned to lateralize the femoral component as much as possible while keeping it flush on the cut surface. This was then pinned into position. A reciprocating saw was used to make the notch cut. A rasp smoothed the cut surfaces. The medial and lateral menisci were removed. A trial femoral component was then inserted, impacted down to the cut surfaces, and the lug holes were drilled. A provisional trial tibial component was placed and the knee was brought through range of motion. The polyethylene was trialed until there was good flexion and extension with excellent stability to the medial and lateral collaterals. The patella was tracking without thumbs. A size 7mm polyethylene component provided the best range of motion and stability with less than 2mm gapping with medial and lateral stress and full extension without significant hyperextension. The tibial cut surface was fully exposed. The tibia was then sized as a 5. The tibia had been previously marked during trialing to correspond to the center of the tibial component to help with rotation. The trial was aligned to this liss, approximately rotated to the medial 1/3rd of the tibial tubercle. The trial was pinned into place. The tibia was prepared with a reamer and a keel punch and lug holes. The trial components were removed. The final components were opened on the back table. The periosteal and capsular tissues, especially posteriorly, around the knee were then systematically injected with a periarticular cocktail consisting of 246mg of Ropivacaine, 0.5mg of Epinephrine, 0.08mg of Clonidine, and 30mg of Ketorolac, diluted to 100cc. On the back table, with the implants opened. The cementless knee components were placed. Starting with the tibial component, the tibia was subluxed anteriorly and the lug holes of the component were lined up. The tibia was then impacted with an impactor and mallet until the tibial component was in contact with the tibia. The final polyethylene component was inserted. Then, the femoral component was inserted. The lug holes were aligned and the component was impacted into position. The knee was irrigated with Surgiphor Betadine solution. This was allowed to sit in the knee for 3 minutes and then it was irrigated out with saline. The patella was tracking with a no-thumbs technique. The capsule was then reapproximated with a No. 1 Vicryl at multiple locations. The capsule was finally closed with a No. 2 Stratafix, barbed suture. Deep tissues were then reapproximated with 0 Vicryl and 2-0 Vicryl. The skin was closed with a running 3-0 Monocryl in a subcuticular fashion. This was reinforced with skin glue. A Mepilex silver dressing was applied along with a [id number] PORSHA wrap. A CryoCuff was applied. During the transfer back to the hospital bed once the drapes were being removed she once again had a significant drop in her blood pressure along with episode of nausea and emesis. She also developed significant hyperemia about her bilateral upper extremities primarily. She did have some rigors as well. This does not seem to be corresponding to any medication administration all anaphylaxis was a consideration. With some support she was able to have return of good blood pr essure and was able to breathe on her own and was conversant the entire time. She was transferred back to the PACU and watched. Further lines were obtained. Tryptase was sent to the lab. Troponins were negative. She was observed in the PACU where she was seem to be stable, holding her blood pressure, breathing comfortably, and in no pain. The exact etiology of these episodes is unclear and thus she was admitted to the hospital for observation overnight. In regards to the knee, Rashard has a good prognosis. It is unclear what this episode of hypotension and emesis would mean to her medically, although, likely will continue to improve on its own without further intervention. Physical therapy will start today and without restrictions, weight-bearing as tolerated. Aspirin 81mg BID will be used for DVT prophylaxis. Date of Procedure: 07/23/24
[2024-07-23] MEDS: Norepinephrine in D5W 8 MG/250 ML BAG 3.75 MG IV (13:30)
--- NOTE | 2024-07-23 14:03 | W.ANESVAS ---
Midline Placement Date Performed: 07/23/24 Procedure Time: 13:27 Requesting Provider: Rasta Lozano Procedure Location: PACU Sedation Given (Indicate Dose Given): No Sedation given Patient Mental Status: Awake Sterility: Hand Hygiene, Surgical Cap, Sterile Gloves and Chlorhexidine Laterality: Right Insertion Site: Basilic Midline Device: PowerGlide Pro 18G Catheter Length: 10 cm Midline Procedure Procedure: Vessel accessed with catheter over needle and Catheter placed without resistance Dressing: Tegaderm Applied and Statlock Applied Blood Return: Present Flushes: Easily Ultrasound: Sterile probe cover and gel used (placed emergently. ) Ultrasound Image Saved?: No Number of Attempts (See previous attempts in note section): 1 Procedure Tolerated: No Complications Procedure Outcome: Successful Procedure Comment:: Pt requiring persistent NE with vaso boluses, IV site without evidence of infiltration (no leaking, blood return, IVF flowing easliy), but with blanched skin around vein, given low BP and still requiring vasoactives midline placed. Line placed clean, not sterile. Performed By: Rasta Lozano
[2024-07-23 14:53] LABS: ALT 41 U/L (14-59); AST 29 U/L (15-37); Albumin 3.7 g/dL (3.4-5.0); Alkaline Phosphatase 81 U/L (46-116); Anion Gap 9.9 mmol/L (3-11); BUN 19 mg/dL (7-18); Bilirubin, Total 0.5 mg/dL (0.2-1.0); CO2 25.1 mmol/L (21.0-32.0); CREATININE 1.2 mg/dL (0.55-1.02); Calcium 9.2 mg/dL (8.5-10.1); Chloride 107 mmol/L (98-107); Estimated GFR 50.55 (mL/min/1.73m2); Glucose 177 mg/dL (74-106); Sodium 142 mmol/L (136-145); Total Protein 7.3 g/dL (6.4-8.2); Troponin I 4 ng/L (<or=51)
--- NOTE | 2024-07-23 15:00 | W.ANESPOSTOP ---
Postoperative Evaluation Date, Time and Location Date Performed: 07/23/24 Time Performed: 15:00 Patient Location: PACU Vital Signs Most Recent Imported Vital Signs: Most Recent Vital Signs Temp Pulse Resp BP Pulse Ox 36.7 C 102 H 13 145/69 H 95 07/23/24 14:50 07/23/24 14:55 07/23/24 14:55 07/23/24 14:51 07/23/24 14:55 Pain Score Most Recent Pain Score: Most Recent Pain Score Pain Level 0 07/23/24 14:50 Assessment Mental Status: Awake (Alert & Oriented to Patient Baseline) Airway and Respiratory Function: Patent airway with normal (patient baseline) respiratory exam Cardiovascular Function: Hemodynamically Stable (NE off. ) Hydration Status: Adequately Hydrated Nausea & Vomiting: No Nausea or Vomiting Pain: Pain is tolerable per patient Peripheral Nerve Block: Regional nerve block not resolved at time of post operative discharge Postoperative Comments:: Discussed intraoperative events and possibilities of her hypotension. Tere sent.
[2024-07-23] MEDS: ceFAZolin 1 GM/50 ML BAG IVPB (17:03)
[2024-07-23] MEDS: Normal Saline Flush 10 ML SYR IV ×2 (17:03→21:35)
--- NOTE | 2024-07-23 17:21 | PT.INIE ---
PT Notes Visit Reasons: Right knee DJD Physical Therapy inpatient initial Evaluation Date: 07/23/2024 Referring Doctor: Lucila Morales NP, Dr. Joseph PT Orders: PT CONSULT: Status post Ortho consult Precautions: Activities as tolerated, IV left upper extremity Patient Profile/Admitting Diagnosis: Patient is 64-year-old female presenting status post elective right TKA by Dr. Joseph on 07/23/2024. Postop complicated by low blood pressures therefore patient admitted for observation to the MedSurg unit for further monitoring and medical management PMHX: Hyperlipidemia, sleep apnea, pelvic muscle atrophy, history of colon polyps, B12 deficiency, arthritis right knee, nicotine dependence, IBS, anxiety, depressive and, COPD Fracture of left distal radius ORIFInguinal hernia Bilateral plantar fasciitis Status post cervical spinal fusion Hx of hand surgery trigger finger Hx of section x2 Hx of hysterectomy Hx of eye surgery Social History/Home Situation: Patient rents a room from her friend she has 3 steps to enter the home with a rail. She has a flight of stairs consisting of 2 steps landing 10 steps landing then 5 steps to her bedroom. There is a railing present. Patient resides with her adoptive granddaughter who is 11 and will be able to provide some assistance if needed. Patient does not have transportation to attend outpatient PT. Patient was independent with ADLs, ambulation, home management, manager financial systems, meal prep, shopping prior to surgery Equipment Owned/DME: None. Patient issued and fitted for FWW from [facility]. Subjective: Patient reports she needs to use the bathroom. Patient reports her bathroom at home is very very small she is concerned about her ability to sit on the toilet as the wall is very close to the front of it. Patient reports her knees touched the wall prior to surgery. She reports the toilet is very low also. Discussed with patient possibility of sitting on toilet sideways or the use of a commode in another room. Objective: [] General Observation: Semireclined in bed with Cryo/Cuff to right knee, IV infusing left upper extremity Mental Status: Alert and oriented x 4, easily distracted, impulsive Pain: Right knee 2/10 ROM: [] Right Upper Extremity: WFL Left Upper Extremity: WFL Right Lower Extremity: Hip and ankle WFL, knee 0-94 degrees Left Lower Extremity: WFL Strength: [] Right Upper Extremity: 5/5 Left Upper Extremity: 5/5 Right Lower Extremity: Hip grossly 3/5, knee extension 3/5, knee flexion 2+/5 ankle, 3+/5; quad set strong and able to perform straight leg raise in shortened range without lag. Left Lower Extremity: Grossly hip 4/5 knee 3+/5 ankle 4/5 Sensation: Intact Bed Mobility/Transfers: [] Supine to sit independent Sit to stand contact-guard assist with cues for hand placement Stand to sit contact-guard assist with cues for hand placement Bed to chair contact-guard assist with FWW Gait: Ambulated with FWW 25 feet contact-guard assist with 1 episode of right knee instability noted while patient was distracted. Patient demonstrates shortened step length BLE, diminished right knee flexion during swing phase and requires cues for knee extension during stance phase on right. Stairs: Unable at this time Balance: [] Static Sitting: Good Dynamic Sitting: Fair plus Static Standing: Fair plus Dynamic Standing: Fair Special Tests: [] Mobility Limitations Standardized Measure [] [facility] 6 clicks Basic Mobility Inpatient Short Form: [] Raw Score: 18 CMS Score: 46.58% Informed Consent/Education: Patient instructed in purpose of PT consult. Treatment: 64988 packet containing TKA exercise protocol has been given to patient. Education and training on initial set of exercises that can be done at home have been completed with patient. 88815 facilitation of functional transfers from various surfaces including bed chair commode with FWW contact-guard assist cues for hand placement and sequencing Assessment: Patient is easily distracted difficulty attending to task placing her at risk for falls. Patient demonstrates straight leg raise without lag however noted knee instability during ambulation while patient distracted. Patient difficulty focusing and attending to task. Patient is a 64-year-old who presents with clinical signs and symptoms consistent with current/admitting diagnoses that have resulted to mobility limitations, gait instability, generalized weakness, and impairment of motor control as demonstrated by the following impairment level findings: 1. Decreased strength to right knee major muscle groups 2. Impaired standing balance 3. Limitation of joint range of motion in right knee 4. Impaired functional activity tolerance Impairments are contributing to the following functional limitations: 1. Inability to safely ambulate without assistive device 2. Increase completion time for mobility ADL performance 3. Increased fall risk 4. Impaired transfers 5. Inability to perform stairs safely Patient is assessed as a low complexity based on the following: History: 64-year-old female with impairment level findings, functional limitations, and past medical history as indicated above Examination: Demonstrable impairment in strength, balance, and mobility level with underlying impairments and functional limitations as documented above Presentation: Stable/ Decision Making: Low Goals: 1. Modified independent transfers with FWW 2. Modified independent ambulation with FWW 150 feet including turns 3. Supervision 5 stairs with rail to safely enter and exit home 4. Independent home exercise program with written TKA protocol Plan of Care/Treatment Plan: PT evaluation and 1-2 treatment session only for functional mobility training using recommended AD and for HEP instruction. DISCHARGE RECOMMENDATIONS: Home health PT TREATMENT CODE/TIME: 83455, 49199, 46889/4:05 PM?4:45 PM Thank you for the opportunity to participate in the care of this patient. Yenni Lainez, PT [facility]
[2024-07-23] MEDS: Aspirin E.C. 81 MG TABEC PO (21:34)
[2024-07-23] MEDS: hydrOXYzine HCL 25 MG TAB PO (21:35)
[2024-07-23] MEDS: Celecoxib 200 MG CAP PO (21:35)
[2024-07-24] MEDS: Normal Saline Flush 10 ML SYR IV ×3 (00:04→08:10)
[2024-07-24] MEDS: ceFAZolin 1 GM/50 ML BAG IVPB ×2 (00:05→08:09)
[2024-07-24 03:05] VITALS: BP 105/63; PULSE 82; RESP 15; TEMP 36; O2SAT 91
[2024-07-24] MEDS: oxyCODONE 5 MG TAB PO (03:24)
--- NOTE | 2024-07-24 06:38 | DSE_ITS ---
Date of service: 07/24/24 Time of Service: 07:25 DS: Diagnosis Discharge Diagnosis (1) Arthritis of knee, right: Status: Chronic Discharge Plan Disposition Patient Disposition: Home W/Home Health Services Condition: Good Discharge Details Reason For Visit: Right knee DJD Admit Date/Time: 07/23/24 11:24 Admit Provider: Shawn Joseph Attending Provider: Shawn Joseph Primary Care Provider: Mariya Pelaez Hospital Course Hospital Course: Patient was admitted to the medical/surgical floor following the procedure for observation giving episodes of hypotension and emesis during and immediately following the surgery. The surgery itself was tolerated well without any surgical complications. She was watched closely and had no further recurrence and did well overnight. Mobilization began postoperatively. She was voiding spontaneously. Vitals were stable. Physical therapy worked with the patient and was cleared for discharge home. No acute medical issues. Pain was controlled on oral regimen. Home Meds and New Rx's Prescriptions: New celecoxib [Celebrex] 200 mg capsule 200 mg PO BID PRNQty: 60 0RF Rx Instructions: Take one tablet twice daily for pain and inflammation aspirin 81 mg tablet,delayed release (DR/EC) 81 mg PO BID 30 Days Qty: 60 0RF acetaminophen 500 mg tablet 1,000 mg PO Q8H PRN Qty: 90 0RF Rx Instructions: Take two tablets up to every 8 hours as needed for pain pantoprazole 40 mg tablet,delayed release (DR/EC) 40 mg PO DAILY Qty: 14 0RF dexamethasone 4 mg tablet 4 mg PO DAILY Qty: 2 0RF Rx Instructions: Take one tablet once daily for two days docusate sodium [Colace] 100 mg capsule 100 mg PO BID Qty: 28 0RF gabapentin 300 mg capsule 300 mg PO QHS Qty: 14 0RF Rx Instructions: Take one tablet at bedtime oxycodone 5 mg tablet 5 mg PO Q4H PRNQty: 18 0RF Rx Instructions: Take one tablet up to every 4 hours as needed for severe postoperative pain Continued ipratropium-albuterol 0.5 mg-3 mg(2.5 mg base)/3 mL solution for nebulization 3 ml inhalation QID PRN (Reason: wheezing) Qty: 180 3RF mecobalamin (vitamin B12) 1,000 mcg tablet,chewable 1,000 mcg PO DAILY Qty: 90 3RF budesonide-formoterol 160-4.5 mcg/actuation HFA aerosol inhaler 2 puff inhalation BID Qty: 10.2 6RF estradiol 0.01 % (0.1 mg/gram) cream 1 appful vaginal .3xW Qty: 42.5 12RF Rx Instructions: for 14 days (DME) Hand held nebulizer See Rx Instructions .Route .MEDSUPPLY Qty: 1 0RF Rx Instructions: As directed cholecalciferol (vitamin D3) 25 mcg (1,000 unit) capsule 25 mcg PO DAILY sertraline 100 mg tablet 200 mg PO DAILY Qty: 180 3RF hydroxyzine HCl 25 mg tablet 25 mg PO QHS Qty: 90 3RF diphenoxylate-atropine 2.5-0.025 mg tablet 1 tab PO TID PRN (Reason: diarrhea) Qty: 180 3RF Discharge Instructions Additional Instructions: Total Knee Discharge Instructions Activity: The most important activity is to walk and to work on gentle motion (both flexion and extension). You should try to take short walks a few times a day. It is important that when resting you work on keeping the knee straight. Avoid putting a pillow behind the knee as this will encourage flexion. Work on range of motion exercises as provided by Physical Therapy. - Start outpatient physical therapy within 2 weeks. - You should wear the EFRA hose on both legs for 2 weeks. You may remove these at night. You may also use any compression sock in place of the EFRA hose. - Utilize [employer] to review exercises, see videos on exercises and obtain basic information pertaining to your surgery and your recovery. Dressing: Remove the Raymon wrap by 2 days after your surgery and put on the EFRA stocking given to you from the hospital. Keep the surgical dressing (underneath the RAYMON wrap) in place for at least one week. After the first week it may be removed and replaced with light gauze and tape or nothing. The wound and dres sing may get wet after 3 days but avoid soaking the dressing or otherwise it will need to be changed. Many people prefer covering the dressing with cling wrap (saran wrap) to minimize it from getting soaked. If it gets wet, just pat dry. If it starts to peel off then it will need to be changed. Medications: - You should take Tylenol and anti-inflammatory Celebrex as your primary pain control medications. If the Celebrex is too expensive or not covered, please call the office for another alternative (Advil/Ibuprofen or Naproxen/Aleve) - You have been prescribed a stronger pain medication Oxycodone for breakthrough pain, take as needed as prescribed. - You have also been prescribed a stomach acid reduction agent Pantoprozole to help reduce stomach acid and reflux. - You have been prescribed Gabapentin to take at night for restlessness and nerve pain. - You will be taking Aspirin 81mg twice a day for DVT prevention unless instructed otherwise. - You have also been prescribed Decadron to take to control post-operative nausea and pain. You will start this tomorrow. - If you have constipation you should take Colace (which has been prescribed) or Miralax (which is available [id number]). It takes most people 3-4 days to have a bowel movement. Follow-up: 2 weeks If you have any acute concerns or questions, please do not hesitate to contact the office at [phone]. You may contact Dr. Joseph with any questions after hours through the hospital at [phone] or on his cell phone at [phone]. 1. Encounter Date and Reason I certify that Amisha Correa was seen by Lucila Romero on 07/23/24 and that I had a [id number] encounter with this patient that meets the physician face to face encounter requirements. 2. Clinical Findings Supporting Skilled Need and Homebound Status I certify that home health services are medically necessary, include either intermittent nursing home and/or physical/speech therapy, and that this patient is homebound in that absences from the home require considerable and taxing effort and are infrequent or of short duration, or are attributable to the need to receive medical care. [X] (a) Attached documentation from encounter provides clinical findings supporting skilled need and homebound status (including what assistance patient requires to leave the home). The encounter with the patient was in whole, or in part, for the following medical condition, which is the primary reason for home health care: Right knee DJD Detention: Physical Therapy: Rashard will benefit from home health physical therapy to address her weakness and gait abnormalities following knee replacement for arthritis. She has no weightbearing restrictions but should use an assistive device. Initial physical therapy can focus on functional mobility throughout her home as well as range of motion of the right knee and quadricep strengthening. Speech Therapy: Homebound: Rashard is unable to leave her home unassisted due to weakness and gait disturbance. 3. Certification and Authentication I certify that I composed the above information based on my clinical judgement relating to this patient's medical condition and, if applicable, clinical findings communicated to me by the NPP or inpatient physician who performed the Home Health Referral. All further orders will be obtained through Dr. Joseph Referrals: Shawn Joseph MD [ [facility] STAFF PHYSICIAN] - Activity:: Activity as Tolerated Equipment/Supplies:: Walker Diet:: As Tolerated Discharge Orders Discharge Orders: Discharge Order (Routine); Ordered 07/24/24 Ordered By: Shawn Joseph DS: Summary Time Spent with Patient providing and/or coordinating discharge services: Less than 30 minutes Status at Discharge Functional status at discharge: uses cane/walker Overall status at discharge: patient is progressing back to baseline Mental Status: mental status grossly normal Speech and Movement: speech and movement normal Mood: congruent mood Affect: normal affect Quality:SDOH Health Related Social Needs: Health related social needs housing instability, house d, with risk of homelessness (Z59.811), feeling lonely/isolated (Z60.8) Health related social needs details See above. Health related social needs details: See above. Exam Narrative Exam Narrative: Sitting up in the bed. No acute distress. Alert and orient x 3. Dressings clean dry and intact. She is able to straight leg raise. She has intact ankle dorsiflexion and plantarflexion. Sensation intact to light touch of the deep and superficial peroneal nerve and tibial nerve. Capillary refill less than 3 seconds. Psych Mental Status: mental status grossly normal Speech and Movement: speech and movement normal Mood: congruent mood Affect: normal affect DS: Data Vitals/I&O Vitals and I&O: Vital Signs Temperature 97.9 F 07/23/24 15:53 Temperature Source Temporal Artery Scan 07/23/24 15:53 Pulse 99 H 07/23/24 15:53 Pulse Rhythm Regular 07/23/24 09:57 Pulse 97 H 07/23/24 15:02 Respiratory Rate 18 07/23/24 15:53 Respiratory Effort Normal, Non-Labored 07/23/24 15:33 Respiratory Depth Normal 07/23/24 15:33 Respiratory Pattern Normal 07/23/24 15:33 Blood Pressure 129/79 07/23/24 15:53 Blood Pressure Mean 82 07/23/24 15:02 Blood Pressure Position Supine 07/23/24 11:40 Pulse Oximetry 97 07/23/24 15:53 Respiratory End-tidal CO2 42 07/23/24 15:02 Oxygen Delivery Method Room Air 07/23/24 15:53 Oxygen Flow Rate 0 07/23/24 15:53 Pain Level 0 07/23/24 15:53 Comment Patient appears to be sleeping 07/23/24 11:20 Comment DATA DESIGNER AT BEDSIDE AND MONITORING BP CLOSELY 07/23/24 13:27 Intake & Output 07/22/24 07/23/24 07/23/24 23:59 11:59 23:59 Intake Total 1079.75 / 1079.75 Output Total 50 / 50 Balance 1029.75 / 1029.75 Weight 214 lb 15.987 oz 218 lb 14.704 oz 224 lb Intake: IV 1079.75 / 1079.75 Output: Estimated Blood Loss 50 / 50 Other: Urine Appearance Clear Emesis Description None Data Completed and Pending Labs on day of discharge: Labs from last 24 hours 07/23/24 14:25 Sodium 142 Potassium 4.0 Chloride 107 Carbon Dioxide 25.1 Anion Gap 9.9 BUN 19 H Creatinine 1.2 H Est GFR (CKD-EPI 2020) 50.55 Glucose 177 H Calcium 9.2 Total Bilirubin 0.5 AST 29 ALT 41 Alkaline Phosphatase 81 Troponin I 4 Total Protein 7.3 Albumin 3.7 Tryptase Pending [facility] All Active Problems Hyperlipidemia (Acute) Sleep apnea (Acute) Grief reaction with prolonged bereavement (Acute) Vaginal atrophy (Acute) Pelvic muscle atrophy (Acute) Pelvic floor dysfunction in female (Acute) Diverticula of colon (Acute) History of colon polyps (Acute) Rectal sphincter incontinence (Acute) B12 deficiency (Acute) Arthritis of knee, right (Chronic) s/p R TKA (07/23/24) Nicotine dependence (Acute) IBS (irritable bowel syndrome) (Chronic) Generalized anxiety disorder (Acute) Depressive disorder (Chronic) COPD (chronic obstructive pulmonary disease) (Chronic) on 2L oxygen at night only if needs it Arthritis (Acute) Surgical History Fracture of left distal radius ORIF Inguinal hernia Bilateral plantar fasciitis Status post cervical spinal fusion Hx of hand surgery trigger finger Hx of section x2 Hx of hysterectomy Hx of eye surgery Social History Smoking/Tobacco Use Status: Former Tobacco Use Quit Date: 04/10/22 Tobacco: How many years used: 51 Smokeless tobacco user: other Smoking risk assessment performed?: Yes Alcohol Intake: never Drug use: Never Substance use type: does not use Counseling given: Yes (pt interested in smoking cessation and enc to reach out for help) Counseling provided: other (encouraged to reach for help when she is ready) Details: uses vape Adopted: No Caregiver/Support person: No Foster care: No Household members: family and children Housing: house Number of Children: 4 number of grandchildren: 11 Communication Needs: None Education Level: college Details: Assoc Degree Do you need help understanding health information?: Rarely current occupation: retired Pets and animals: Yes (1 of each) Pets and animals: iguana(s) and turtle(s) Sexually active: No Do you think of yourself as: straight/heterosexual Current gender identity: female What is your relationship status?: How often do you talk on the phone with friends or family?: three or more times per week How often do you get together with friends or relatives?: once per week Do you belong to any clubs or organized social groups?: no Panel score (0-1 are the most socially isolated patients): 1 What type of physical activity do you participate in: none Seatbelt use: always Helmet use: Yes Drive intox or ride w/intox tow motor driver: No Working smoke detector in home: Yes Do you feel safe at home: Yes Do you feel safe in your relationship?: Yes Time Spent with Patient Time Spent with Patient: <45 minutes Time was spent: preparing to see the patient(eg.review tests), counseling the patient and care coordination
[2024-07-24 07:10] VITALS: BP 106/58; PULSE 67; RESP 19; TEMP 36.5; O2SAT 92
[2024-07-24] MEDS: Acetaminophen 500 MG TAB 1000 MG PO (08:09)
[2024-07-24] MEDS: Aspirin E.C. 81 MG TABEC PO (08:10)
[2024-07-24] MEDS: Dexamethasone 4 MG TAB PO (08:10)
[2024-07-24] MEDS: Celecoxib 200 MG CAP PO (08:10)
[2024-07-24] MEDS: Sertraline 100 MG TAB 200 MG PO (08:10)
--- NOTE | 2024-07-24 09:39 | INITIAL_ITS ---
Date of service: 07/24/24 Time of Service: 09:39 Care Management Initial Assmt Initial Assessment Reason for Hospitalization: right TKR Functional Status/Living Situation Patient Presentation: Rashard, as Amisha prefers to be called, was sitting up in bed when CM met with her. She was pleasant in manner and easily engaged with CM. Rashard was admitted for a total knee replacement which was done yesterday. The surgery went well and she is feeling good this morning. She has worked with PT and anticipates seeing them again this morning. Rashard will be discharged home today with new home health PT. Rashard lived in [place] for many years and worked as a body technician/painter. She had 3 daughters but one of them about 7 years ago, leaving a 4 year old daughter. Rashard has since adopted her granddaughter and is now raising her. She moved to [place] a few years ago and them back to [place] last September. She reported that although she loves [place] and is close to her daughter Maria T, it is financially challenging to live here. She plans to return to [place] as soon as she is healed from surgery. She has friends and family there who are very close to and supportive of her granddaughter Alberto. Rashard is independent at baseline. She is currently using a walker for ambulation and receives SSI and food assistance. Town of Residence: [place] Resides with: Other (a friend and her (Christina's) granddaughter Alberto) Significant Other/Family: Local Natural Supports: friend in [place], 2 daughters and granddaughter Employment Status: Retired Instrumental Activities of Daily Living (ADLs): Independent Medications Medication Management: No Issues/Barriers identified Physical Functioning/Mobility Assistive Device: walker Advance Directives Advance Directives: Do you have an Advance Directive: N 11/16/23 09:05 AD On File at [facility]: N 11/16/23 09:05 Date Asked 07/23/24 07/12/24 12:23 AD Date Reviewed COLST On File at [facility] COLST Date Scanned Code Status Resuscitation Status Full Code Insurance Coverage/Financial Issues Insurance: Medicaid Financial Issues: only income $1100/month from Social Security does get food assistance Care Team Visit Care Team Role Provider Type Mariya Pelaez NP Primary Care Provider NURSE PRACTITIONER [facility] Other Providers OTHER Shawn Joseph MD Admit Provider [facility] STAFF PHYSICIAN Attending Provider Discharge Potential Discharge Needs: PCP F/U Appt Anticipated Barriers to Discharge: None Identified Patient/Family Education Needs: Review discharge instructions, discuss Ask Me Three Transportation: Private vehicle Plan: Rashard will be discharged home with new home health PT. She will follow up with her community providers and plan of care and transport with her daughter. Social Determinants of Health Screening Social Determinants of health last assessed in clinic: 07/24/24 Will the Patient Participate in the Screening?: Yes Do you worry about having a steady place to live?: yes What is your living situation today?: I have housing today, but am worried about losing it Problems where you live: no known problems In the past 12 months, have you had to go without electric, gas, oil or water in your home?: no 1. Within the past 12 months, we worried whether our food would run out before we got money to buy more.: Never true 2. Within the past 12 months, the food we bought just didn't last and we didn't have money to get more.: Never true Has lack of transportation kept you from medical appointments or from doing things needed for daily living?: no Has anyone in your life made you feel unsafe or unsupported?: no How hard is it for you to pay for the very basics like food, housing, medical care, and heating? Would you say it is:: Not hard at all Do you want help finding or keeping work or a job?: I do not need or want help If for any reason you need help with day-to-day activities such as bathing, preparing meals, shopping, managing finances, etc., do you get the help you need?: I don?t need any help How often do you feel lonely or isolated from those around you?: Sometimes Do you speak a language other than Telugu at home?: No Does the patient want assistance with any of the above?: No Health Related Social Needs Health related social needs: housing instability, housed, with risk of homelessness (Z59.811) and feeling lonely/isolated (Z60.8) Health related social needs details: See above. PFSH All Active Problems (Updated 07/24/24 @ 09:24 by Alysha Riley RN) History of total right knee replacement (Acute 07/23/24) Hyperlipidemia (Acute) Sleep apnea (Acute) Grief reaction with prolonged bereavement (Acute) Vaginal atrophy (Acute) Pelvic muscle atrophy (Acute) Pelvic floor dysfunction in female (Acute) Diverticula of colon (Acute) History of colon polyps (Acute) Rectal sphincter incontinence (Acute) B12 deficiency (Acute) Nicotine dependence (Acute) IBS (irritable bowel syndrome) (Chronic) Generalized anxiety disorder (Acute) Depressive disorder (Chronic) COPD (chronic obstructive pulmonary disease) (Chronic) on 2L oxygen at night only if needs it Arthritis (Acute) Surgical History Fracture of left distal radius ORIF Inguinal hernia Bilateral plantar fasciitis Status post cervical spinal fusion Hx of hand surgery trigger finger Hx of section x2 Hx of hysterectomy Hx of eye surgery Social History Smoking/Tobacco Use Status: Former Tobacco Use Quit Date: 04/10/22 Tobacco: How many years used: 51 Smokeless tobacco user: other Smoking risk assessment performed?: Yes Alcohol Intake: never Drug use: Never Substance use type: does not use Counseling given: Yes (pt interested in smoking cessation and enc to reach out for help) Counseling provided: other (encouraged to reach for help when she is ready) Details: uses vape Adopted: No Caregiver/Support person: No Foster care: No Household members: family and children Housing: house Number of Children: 4 number of grandchildren: 11 Communication Needs: None Education Level: college Details: Assoc Degree Do you need help understanding health information?: Rarely current occupation: retired Pets and animals: Yes (1 of each) Pets and animals: iguana(s) and turtle(s) Sexually active: No Do you think of yourself as: straight/heterosexual Current gender identity: female What is your relationship status?: How often do you talk on the phone with friends or family?: three or more times per week How often do you get together with friends or relatives?: once per week Do you belong to any clubs or organized social groups?: no Panel score (0-1 are the most socially isolated patients): 1 What type of physical activity do you participate in: none Seatbelt use: always Helmet use: Yes Drive intox or ride w/intox sales driver: No Working smoke detector in home: Yes Do you feel safe at home: Yes Do you feel safe in your relationship?: Yes
--- NOTE | 2024-07-24 10:03 | CMDISCH_ITS ---
Date of service: 07/24/24 Time of Service: 10:03 LACE Index Scoring Tool Questions: Length of Stay (in days): 1 Was the patient admitted via the E.D.?: No Comorbidities: Chronic Pulmonary Disease E.D. Visits: 0 Answers: Total Score: 3 Risk of Readmission: Low Risk Care Management Discharge Plan Reason for Hospitalization: TKR Discharge Plan: Rashard will be discharged home with new home health PT. She will follow up with her community providers and plan of care and transport with her daughter. Patient/Family Education Needs: Review discharge instructions, discuss Ask Me Three Services Needed at Discharge: Home Health Care Services SDOH Health Related Social Needs: Health related social needs housing instability, house d, with risk of homelessness (Z59.811), feeling lonely/isolated (Z60.8) Health related social needs details See above. Health related social needs details: See above.
--- NOTE | 2024-07-24 10:17 | PT.INTREAT ---
PT Notes Visit Reasons: Right knee DJD Inpatient Physical Therapy Treatment Note [facility] Date: 07/24/2024 PRECAUTIONS: Weightbearing as tolerated right lower extremity SUBJECTIVE: Patient reports feeling much better and is eager to be going home OBJECTIVE: Patient presented seated at edge of bed fully dressed Raymon bandage removed EFRA stockings being applied? PAIN: 05/20 right knee VITALS: Monitored by nursing ? Therapeutic Activities ([id number][]): Direct one-on-one instruction in dynamic activities to improve functional performance. ? BED MOBILITY/TRANSFERS? Rolling L/R: Independent Supine-sit: Independent ? Sit-supine: Independent ? Sit-stand: SBA? Stand-sit: SBA ? Bed-Chair: SBA with FWW ? Chair-bed: SBA with FWW Provided skilled cues and instruction on performance and technique throughout including cues to activate quad on right at mid stance to reduce knee instability. Gait Training ([id number][]): Direct one-on-one instruction and skilled instruction in: [] employing an assistive device [] modified weight-bearing status [x] movement sequencing [x] turning and movement with proper form [] Provided verbal cues for equipment management and technique [x] Provided instruction in gait pattern [x] Patient education regarding pacing and breathing techniques to maximize activity tolerance? GAIT? Assistive Device: FWW? Weight bearing: As tolerated Assist: SBA ? Distance: 150 feet x 2 ? Deviation: Step to gait pattern cues for quad activation at mid stance as patient hesitant to achieve terminal knee extension with noted knee instability ? STAIRS:5 steps with rails CGA and cues to activate quad during Right leg WB . Pt with episode of knee instability as attempted first step despite cueing for quad activation? Therapeutic Exercises ([id number][]): Direct one-on-one instruction in therapeutic exercises to develop strength, endurance, range of motion and flexibility. ? Exercises ? Supine: Quad sets, glutes sets, straight leg raise, short arc quad, ankle pumps, heel slides(with 5 second hold) x 10 reps Seated: Long arc quad x 10 reps, seated heel slides and hamstring stretch times 30 seconds x 5 trials ? Provided skilled instruction in proper exercise performance Provided skilled manual cues to facilitate proper muscle recruitment and/or form: Tapping to initiate terminal knee extension in stance ASSESSMENT: Patient tolerated session well demonstrates increased tolerance to standing tasks with and without upper extremity support. However patient continues to limit amount of weightbearing through right lower extremity. Patient requires cues activation of right quad during weightbearing tasks. Patient hesitant to perform terminal knee extension stating it pulls on the back of her leg/hamstring. Patient instructed in seated hamstring stretch to help reduce reports of discomfort while in standing. Patient remains impulsive at times. Patient fitted for and issued FWW from [facility]. Patient to be discharged to home with home health PT PLAN:DISCHARGE TO HOME AFTER TREATMENT TREATMENT CODE/TIME: 74370, 51766, [id number] DISCHARGE RECOMMENDATION: HHPT
== END 2024-07-24 10:28 | disposition home health service (06) ==
LOC: SUR 11:28 → MS 07-24 07:47
PROVIDERS: Nurse Anesthetist, Certified Registered; Admitting Provider Student in an Organized Health Care Education/Training Program; PCP Nurse Practitioner; Visit Provider Student in an Organized Health Care Education/Training Program
PROC: (CPT 27447; principal; 2024-07-23 12:45)
DX: M17.11 Unilateral primary osteoarthritis, right knee (principal); I95.81 Postprocedural hypotension; R11.10 Vomiting, unspecified; G89.18 Other acute postprocedural pain; M25.561 Pain in right knee
CPT/HCPCS: 27447; 36410; 64447; 80053; 83520; 96365; 96366; 97110; 97116; 97161; 97530; 84484; C1776; G0378; J0665; J0690; J1100; J2250; J2401; J2405; J2598; J2704; J8540

== ENCOUNTER 2024-08-05 10:48 | Outpatient (CLI) | payer MEDICAID, SELFPAY ==
--- NOTE | 2024-08-05 10:00 | DI.RAD_ITS ---
Exam(s) XR KNEE RT 1V XR STANDING ALIGNMENT EXAM: XR STANDING ALIGNMENT and XR knee RT 1 V CLINICAL HISTORY: 1ST POST OP S/P R TKA. TECHNIQUE: 2D digital imaging was performed. Five images were obtained. COMPARISON: CR XR STANDING ALIGNMENT from 07/08/2024 CR XR KNEE RT 1V from 07/08/2024 FINDINGS: BONES: The hips are well maintained. Since the prior examination, there has been interval placement of a right total knee arthroplasty. The orthopedic hardware is in good position. No suspicious luce ncies are seen around the hardware. The left knee is well maintained. The ankles are well maintaine d.There is no significant leg length discrepancy. SOFT TISSUE: Normal. IMPRESSION: There has been interval placement of a right total knee arthroplasty. The orthopedic hardware appear s in good position. DATA REPOSITORY: RADIATION DOSE DELIVERED:
== END 2024-08-05 10:49 | disposition home or self-care (01) ==
LOC: DIORS 10:48
PROVIDERS: PCP Nurse Practitioner; Visit Provider Physician Assistant
DX: Z96.651 Presence of right artificial knee joint (principal)
CPT/HCPCS: 73560; 77073